=== PATIENT | male | born 1975 | race Caucasian/White ===

== ENCOUNTER 2024-06-16 05:50 | Day surgery (SDC) | payer BC ==
[2024-06-12 14:38] VITALS: BMI 28.1
[2024-06-16] MEDS ORDERED: AFRIN NASAL MIST 15 ML BOT ONE ×2 (06:15→06:32)
[2024-06-16] MEDS ORDERED: Oxymetazoline HCl 0.05% ( 15 ML ) ONE (06:20)
[2024-06-16] MEDS ORDERED: PROPOFOL 40 ML ONE (06:29)
[2024-06-16] MEDS ORDERED: Dexamethasone 20 MG/5 ML VIAL ONE (06:29)
[2024-06-16] MEDS ORDERED: Lidocaine 1% PF 5 ML VIAL ONE (06:29)
[2024-06-16] MEDS ORDERED: SUGAMMADEX SODIUM 200 MG/2 ML VIAL ONE (06:29)
[2024-06-16] MEDS ORDERED: Rocuronium Bromide 10 MG/ML (10ML VIAL) ONE ×2 (06:29→08:50)
[2024-06-16] MEDS ORDERED: Ondansetron PF 4 MG/2 ML Vial ONE (06:29)
[2024-06-16] MEDS ORDERED: Dexmedetomidine 200 MCG/2 ML VIAL ONE (06:29)
[2024-06-16] MEDS ORDERED: Fentanyl 250 MCG/5 ML VIAL ONE (06:30)
[2024-06-16] MEDS ORDERED: PROPOFOL 20 ML ONE (06:32)
[2024-06-16] MEDS ORDERED: EPINEPHrine 1 MG/ML VIAL ONE ×2 (06:32→06:37)
[2024-06-16] MEDS ORDERED: Tranexamic Acid 1,000 MG/10 ML VIAL ONE (06:32)
[2024-06-16] MEDS ORDERED: Lidocaine 1% w/Epinephrine 1:200K 30 ML VIAL ONE (06:33)
[2024-06-16] MEDS ORDERED: Mupirocin 2% Ointment 22 GM Tube ONE (06:33)
[2024-06-16] MEDS ORDERED: PHENYLEPHRINE-NS 100 MCG/ML 10 ML SYRINGE ONE (07:48)
[2024-06-16] MEDS ORDERED: ePHEDrine Sulfate 50 MG/10 ML VIAL ONE (08:08)
[2024-06-16] MEDS ORDERED: HYDROcodone/Acetaminophen 5/325 mg Tablet ONE (10:56)
== END 2024-06-16 11:50 | disposition home or self-care (01) ==
LOC: CSHSDC 05:50
PROVIDERS: ATTEND Otolaryngology
PROC: 09TL8ZZ Resection of Nasal Turbinate, Via Natural or Artificial Opening Endoscopic (ICD-10-PCS; principal; 2024-06-16)
PROC: 0CS Mouth and Throat, Reposition (ICD-10-PCS; principal; 2024-06-16)
PROC: 5A09357 Assistance with Respiratory Ventilation, Less than 24 Consecutive Hours, Continuous Positive Airway Pressure (ICD-10-PCS; principal; 2024-06-16)
PROC: 09BM8ZZ Excision of Nasal Septum, Via Natural or Artificial Opening Endoscopic (ICD-10-PCS; principal; 2024-06-16)
DX: J34.2 Deviated nasal septum (principal); J34.3 Hypertrophy of nasal turbinates; J30.89 Other allergic rhinitis; E03.9 Hypothyroidism, unspecified; J30.81 Allergic rhinitis due to animal (cat) (dog) hair and dander; Z79.890 Hormone replacement therapy; Z79.899 Other long term (current) drug therapy
CPT/HCPCS: J0171; J1100; J2405; J2704; J3010